=== PATIENT | male | born 1970 | race Caucasian/White ===

== ENCOUNTER 2018-03-29 19:43 | Emergency (ER) | payer MEDICAID ==
[~2018-03-29] VITALS: Ht 170.2 cm; Wt 86.4 kg
[2018-03-29 21:42] VITALS: BP 147/101
== END 2018-03-29 22:16 | disposition home or self-care (01) ==
LOC: EMS 19:46
DX: S30.862A Insect bite (nonvenomous) of penis, initial encounter (principal); E78.00 Pure hypercholesterolemia, unspecified; I10 Essential (primary) hypertension; W57.XXXA Bitten or stung by nonvenomous insect and other nonvenomous arthropods, initial encounter; Y93.89 Activity, other specified; Y92.89 Other specified places as the place of occurrence of the external cause; Y99.8 Other external cause status
CPT/HCPCS: 99281

== ENCOUNTER 2021-07-18 21:52 | Emergency (ER) | payer MEDICAID ==
[~2021-07-18] VITALS: Ht 157.5 cm; Wt 86.4 kg
[2021-07-18 23:03] LABS: BASOPHILS % (AUTO) 0.6 % (0.0-2.0); EOSINOPHILS % (AUTO) 2.5 % (1.0-6.0); HEMATOCRIT 39.3 % (41-53); HEMOGLOBIN 13.3 g/dL (13.5-17.5); LYMPHOCYTES # (AUTO) 2.4 K/uL (1.0-4.8); LYMPHOCYTES % (AUTO) 42.5 % (22.0-44.0); MEAN CORPUSCULAR HEMOGLOBIN 33.9 pg (26.0-34.0); MEAN CORPUSCULAR HGB CONC 33.9 G/dL (31.0-37.0); MEAN CORPUSCULAR VOLUME 100 fL (80-100); MONOCYTES # (AUTO) 0.5 K/uL (0.1-1.0); MONOCYTES % (AUTO) 8.6 % (2.0-9.0); NEUTROPHILS # (AUTO) 2.6 K/uL (1.8-7.7); NEUTROPHILS % (AUTO) 45.8 % (40.0-70.0); PLATELET COUNT (AUTO) 194 K/uL (150-450); RED BLOOD CELL COUNT(AUTO) 3.94 MIL/uL (4.50-5.90); RED CELL DISTRIBUTION WIDTH 13.4 % (11.5-14.5)
[2021-07-18 23:13] LABS: ANION GAP 12 mmol/L (8-16); CARBON DIOXIDE 25 mmol/L (22-29); CHLORIDE 108 mmol/L (98-107); CREATININE 0.96 mg/dL (0.60-1.30); GLOMERULAR FILTR. RATE CALC > 60 mL/min (>60); GLUCOSE,RANDOM 130 mg/dL (70-110); POTASSIUM 3.6 mmol/L (3.5-5.1); SODIUM SERUM 145 mmol/L (136-145); UREA NITROGEN, BLOOD 13 mg/dL (7-18)
[2021-07-18 23:18] LABS: ALANINE AMINOTRANSFERASE 55 U/L (12-78); ALBUMIN 3.6 g/dL (3.4-5.0); ALKALINE PHOSPHATASE 101 U/L (46-116); ASPARTATE AMINOTRANSFERASE 37 U/L (15-37); BILIRUBIN,TOTAL 0.2 mg/dL (0.1-1.0); C-REACTIVE PROTEIN QUANT 0.73 mg/dL (0.00-0.30); TOTAL PROTEIN, SERUM 7.4 g/dL (6.4-8.2)
[2021-07-19] VITALS: BP 120/76
[2021-07-19] MEDS ORDERED: KETOROLAC TROMETHAMINE 30 MG/ML VIAL IVP ONE (00:15)
[2021-07-19 00:17] LABS: ERYTHROCYTE SEDIMENTATION RATE 9 MM/HR (0-15)
[2021-07-19] MEDS ORDERED: KETOROLAC TROMETHAMINE 30 MG/ML VIAL IM ONE (00:45)
== END 2021-07-19 00:56 | disposition home or self-care (01) ==
LOC: EMS 21:55
DX: S80.01XA Contusion of right knee, initial encounter (principal); M25.461 Effusion, right knee; I10 Essential (primary) hypertension; E78.00 Pure hypercholesterolemia, unspecified; X58.XXXA Exposure to other specified factors, initial encounter; Y93.89 Activity, other specified; Y92.89 Other specified places as the place of occurrence of the external cause; Y99.8 Other external cause status
CPT/HCPCS: 36415; 73562; 80053; 85025; 85651; 86140; 93971; 96372; 99284; J1885

== ENCOUNTER 2021-09-18 07:52 | Emergency (ER) | payer MEDICAID ==
[~2021-09-18] VITALS: Ht 167.6 cm; Wt 86.4 kg
[2021-09-18 09:07] VITALS: BP 143/91
[2021-09-18] MEDS: LIDOCAINE 1% 10 ML VIAL ID ONE (09:10)
== END 2021-09-18 09:25 | disposition home or self-care (01) ==
LOC: EMS 07:56
DX: L02.31 Cutaneous abscess of buttock (principal); I10 Essential (primary) hypertension; E78.00 Pure hypercholesterolemia, unspecified
CPT/HCPCS: 10160; 99284; J3490; 99283

== ENCOUNTER 2021-09-19 17:31 | Emergency (ER) | payer MEDICAID ==
[~2021-09-19] VITALS: Ht 162.6 cm; Wt 86.4 kg
[2021-09-19] MEDS ORDERED: LIDOCAINE 1% 10 ML VIAL SQ ONE (19:15)
[2021-09-19] MEDS ORDERED: POVIDONE-IODINE 10% 15 ML SOLUTION UD TP ONE (19:15)
[2021-09-19] MEDS ORDERED: IBUPROFEN 800 MG TABLET PO ONE (19:15)
[2021-09-19] MEDS ORDERED: LIDOCAINE 1% 20 ML VIAL SQ ONE (19:30)
[2021-09-19 20:43] VITALS: BP 130/79
== END 2021-09-19 20:50 | disposition home or self-care (01) ==
LOC: EMS 17:35
DX: L02.31 Cutaneous abscess of buttock (principal); L03.317 Cellulitis of buttock; I10 Essential (primary) hypertension; E78.00 Pure hypercholesterolemia, unspecified
CPT/HCPCS: 10060; 99285; J3490; 99282

== ENCOUNTER 2023-03-22 09:20 | Emergency (ER) | payer MEDICAID ==
[~2023-03-22] VITALS: Ht 167.6 cm; Wt 94.7 kg
[~2023-03-22 09:20] MED LIST: AMLO10TA55 PO; AMOX1TAB16 PO; CLOT15CR23 TP; METO-391 PO; PRAV40TA3 PO
[2023-03-22 09:31] VITALS: TEMP 98.1
[2023-03-22] MEDS ORDERED: HYDROCODONE/ACETAMINOPHEN 5-325 MG TABLET PO ONE (12:30)
[2023-03-22] MEDS ORDERED: LIDOCAINE 1% 10 ML VIAL SQ ONE (12:30)
[2023-03-22] MEDS ORDERED: MONT-40 PO (12:35)
[2023-03-22] MEDS ORDERED: CHOL200074 PO (12:35)
[2023-03-22] MEDS ORDERED: AZEL137S8 NASAL (12:35)
[2023-03-22] MEDS ORDERED: FAMO20 PO (12:35)
[2023-03-22] MEDS ORDERED: ALBU18HF12 IH (12:35)
[2023-03-22] MEDS ORDERED: UMEC1DIS IH (12:35)
[2023-03-22] MEDS ORDERED: CLINDAMYCIN HCL 150 MG CAPSULE PO ONE (14:15)
[2023-03-22 14:19] VITALS: BP 100/60; PULSE 91; RESP 16
[2023-03-22] MEDS ORDERED: CLIN-142 PO (14:21)
== END 2023-03-22 14:42 | disposition home or self-care (01) ==
LOC: EMS 09:25
DX: L02.31 Cutaneous abscess of buttock (principal); L03.317 Cellulitis of buttock; I10 Essential (primary) hypertension; E78.00 Pure hypercholesterolemia, unspecified
CPT/HCPCS: 99283; 10060; J3490